=== PATIENT | male | born 1970 | race Two or more races ===

== ENCOUNTER 2024-06-23 04:18 | Emergency (ER) | payer OTHER ==
[~2024-06-23] VITALS: Ht 167.6 cm; Wt 63.5 kg
[2024-06-23] MEDS ORDERED: FAMOtidine 10 MG/ML (4ML VIAL) IV PUSH STA (05:07)
[2024-06-23] MEDS ORDERED: cloNIDine HCL 0.3 MG TABLET PO STA (05:07)
[2024-06-23 06:34] LABS: HEMOGLOBIN 14.3 g/dL (13-16.00); MEAN CELL VOLUME 79.8 fL (80.0-100.00); MEAN CORPUSCULAR HEMOGLOBIN 27.2 pg (27.00-32.0); MEAN CORPUSCULAR HGB CONC 34.1 g/dl (32.0-36.0); PLATELET COUNT 203 K/uL (150-450); RED BLOOD COUNT 5.26 M/uL (4.00-6.00); RED CELL DISTRIBUTION WIDTH 13.7 % (11.5-14.5)
[2024-06-23 06:44] LABS: ALBUMIN 3.9 gm/dL (3.4-5.0); BILIRUBIN TOTAL 0.79 mg/dL (0.3-1.2); CREATININE SERUM 1.22 mg/dL (0.70-1.30); GFR 61.45; GLOBULINA 3.6 G/DL (2.4-3.5); POTASSIUM 3.58 mEq/L (3.5-5.1); TOTAL PROTEIN 7.5 gm/dL (6.4-8.2)
== END 2024-06-23 07:29 | disposition home or self-care (01) ==
LOC: ER 04:20
DX: I10 Essential (primary) hypertension (principal); R12 Heartburn